=== PATIENT | male | born 1980 | race Caucasian/White ===

== ENCOUNTER 2017-08-11 13:07 | Emergency (ER) | payer BC ==
[2017-08-11 13:44] VITALS: BP 167/93; PULSE 120; RESP 18; TEMP 99.2
--- NOTE | 2017-08-11 13:56 | ED ---
General Adult HPI - General Chief complaint: ENT Stated complaint: Sore Throat Time Seen by Provider: 08/11/17 13:37 Source: patient, RN notes reviewed Mode of arrival: ambulatory Limitations: no limitations - History of Present Illness Initial comments: Patient 37-year-old male presents emergency room today with a chief complaint of cough congestion and body aches over the last 4 days. Patient is to running low-grade fevers. He states been using ibuprofen for pain. States follow-up was placed on Augmentin. States symptoms are much improved. Patient's total aches pains and some congestion. This metabolic sore throat. Denies any other complaints. Patient denies any recent shortness of breath, chest pain, back pain , abdominal pain, nausea or vomiting, numbness or tingling, dysuria or hematuria , constipation or diarrhea, headaches or visual changes, or any other complaints. - Related Data Home Medications Medication Instructions Recorded Confirmed Acetaminophen Tab [Tylenol] 650 mg PO Q6H PRN 08/11/17 08/11/17 Amoxic-Pot Clav 500-125 mg 1 tab PO TID 08/11/17 08/11/17 [Augmentin 500-125 mg] Ibuprofen [Motrin Ib] 200 - 400 mg PO Q6H PRN 08/11/17 08/11/17 Levothyroxine Sodium [Synthroid] 125 mcg PO DAILY 08/11/17 08/11/17 Venlafaxine HCl [Effexor XR] 150 mg PO BID 08/11/17 08/11/17 lamoTRIgine [LaMICtal] 200 mg PO DAILY 08/11/17 08/11/17 predniSONE 40 mg PO DAILY 08/11/17 08/11/17 Previous Rx's Medication Instructions Recorded Fluticasone Propionate [Flonase 1 - 2 spray EA NOSTRIL DAILY 5 08/11/17 Allergy Relief] Days ml Allergies Allergy/AdvReac Type Severity Reaction Status Date / Time No Known Allergies Allergy Verified 08/11/17 13:39 Review of Systems ROS Statement: Those systems with pertinent positive or pertinent negative responses have been documented in the HPI. ROS Other: All systems not noted in ROS Statement are negative. Past Medical History Past Medical History: Thyroid Disorder Additional Past Medical History / Comment(s): mood disorder History of Any Multi-Drug Resistant Organisms: None Reported Past Surgical History: Hernia Repair Past Psychological History: Anxiety, Depression Smoking Status: Never smoker Past Alcohol Use History: None Reported Past Drug Use History: None Reported General Exam - General Exam Comments Initial Comments: General: The patient is awake and alert, in no distress, and does not appear acutely ill. Eye: Pupils are equal, round and reactive to light, extra-ocular movements are intact. No nystagmus. There is normal conjunctiva bilaterally. No signs of icterus. Ears, nose, mouth and throat: There are moist mucous membranes and no oral lesions. Mild redness erythema to the posterior pharynx. No difficulty swallowing. Uvula midline. No exudate. Neck: The neck is supple, there is no tenderness or JVD. Cardiovascular: There is a regular rate and rhythm. No murmur, rub or gallop is appreciated. Respiratory: Lungs are clear to auscultation, respirations are non-labored, breath sounds are equal. No wheezes, stridor, rales, or rhonchi. Musculoskeletal: Normal ROM, no tenderness. Strength 5/5. Sensation intact. Pulses equal bilaterally 2+. Neurological: A&O x 3. CN II-XII intact, There are no obvious motor or sensory deficits. Coordination appears grossly intact. Speech is normal. Skin: Skin is warm and dry and no rashes or lesions are noted. Psychiatric: Cooperative, appropriate mood & affect, normal judgment. Limitations: no limitations Course Vital Signs 08/11/17 13:36 Temperature 99.2 F Pulse Rate 120 H Respiratory 18 Rate Blood Pressure 167/93 O2 Sat by Pulse 99 Oximetry Medical Decision Making - Medical Decision Making Patient has been on antibiotics for 2 days. Advised continue his antibiotic of Augmentin. Patient is advised to use Flonase. Advised to follow-up family physician over the next 2 days. At this time is discussed that most likely a viral illness to be the reason antibiotics is not improved his symptoms. Advised to increase fluids. Advised continue Tylenol Motrin for fevers. Disposition Clinical Impression: Upper respiratory infection Disposition: HOME SELF-CARE Condition: Good Instructions: Upper Respiratory Infection (ED) Additional Instructions: Please use medication as discussed. Please follow-up with family doctor in the next 2 days of symptoms have not improved. Please return to emergency room if the symptoms increase or worsen or for any other concerns. Prescriptions: Fluticasone Propionate [Flonase Allergy Relief] 1 - 2 spray EA NOSTRIL DAILY 5 Days ml Is patient prescribed a controlled substance at d/c from ED?: No Referrals: Nonstaff,Physician [Primary Care Provider] - 1-2 days Time of Disposition: 13:55
== END 2017-08-11 14:09 | disposition home or self-care (01) ==
LOC: EC 13:07
DX: J06.9 Acute upper respiratory infection, unspecified (principal); E07.9 Disorder of thyroid, unspecified; F32.9 Major depressive disorder, single episode, unspecified; F41.9 Anxiety disorder, unspecified; Z79.1 Long term (current) use of non-steroidal anti-inflammatories (NSAID); Z79.52 Long term (current) use of systemic steroids; Z79.899 Other long term (current) drug therapy; Z87.39 Personal history of other diseases of the musculoskeletal system and connective tissue
CPT/HCPCS: 99282